=== PATIENT | female | born 1935 | race Caucasian/White ===

== ENCOUNTER → 2016-12-31 | Outpatient (CLI) | payer MEDICARE, BC ==
--- NOTE | 2016-12-31 22:59 | PCVCIMAG ---
EXAM: BILATERAL LOWER EXTREMITY ARTERIAL DUPLEX INDICATION: Nonhealing ulcers lower legs. FINDINGS: Right Leg: Satisfactory arterial waveform in the common femoral and profunda femoral artery. Mild less than 50% stenosis proximal superficial femoral artery. Mid and distal superficial femoral artery and popliteal artery are patent. The anterior tibial, posterior tibial, and peroneal arteries show good patency. Left Leg: Satisfactory arterial waveform in the common femoral and profunda femoral artery. Mild less than 50% stenosis proximal superficial femoral artery. Mid and distal superficial femoral artery and popliteal artery are patent. The anterior tibial, posterior tibial, and peroneal arteries show good patency. IMPRESSION: No flow limiting stenosis in the right lower extremity. No flow limiting stenosis in the left lower extremity. LOC:OFFICE
== END | disposition home or self-care (01) ==
LOC: PCVCIMAG 14:20
PROVIDERS: ATTEND Nuclear Medicine Nuclear Cardiology
DX: I70.203 Unspecified atherosclerosis of native arteries of extremities, bilateral legs (principal); L97.819 Non-pressure chronic ulcer of other part of right lower leg with unspecified severity; L97.829 Non-pressure chronic ulcer of other part of left lower leg with unspecified severity
CPT/HCPCS: 93925